=== PATIENT | female | born 1985 | race Caucasian/White ===

== ENCOUNTER → 2016-03-27 | Outpatient (CLI) | payer BC, OTHER ==
[2016-03-27 17:08] LABS: Basophils % (A) 1 %; CH 30.1; CHCM 33.3; Eosinophils # (A) 0.2 k/uL (0-0.7); Eosinophils % (A) 3 %; HCT 44.4 % (34.0-46.0); HDW 2.26; HGB 14.7 gm/dL (11.4-16.0); Luc # (Auto) 0.12; Luc % (Auto) 2; Lymphocytes # (A) 1.9 k/uL (1.0-4.8); Lymphocytes % (A) 26 %; MCH 30.1 pg (25.0-35.0); MCHC 33.1 g/dL (31.0-37.0); MCV 90.8 fL (80.0-100.0); Mean Platelet Volume 7.6; Monocytes # (A) 0.4 k/uL (0-1.0); Monocytes % (A) 5 %; Neutrophils # (A) 4.8 k/uL (1.3-7.7); Neutrophils % (A) 64 %; RBC 4.89 m/uL (3.80-5.40); RDW 12.1 % (11.5-15.5); WBC 7.5 k/uL (3.8-10.6); WBC (Perox) 7.31
== END | disposition home or self-care (01) ==
LOC: LABPAT 16:43
PROVIDERS: ATTEND Obstetrics & Gynecology
DX: Z01.812 Encounter for preprocedural laboratory examination (principal)
CPT/HCPCS: 85025

== ENCOUNTER 2016-04-03 06:39 | Day surgery (SDC) | payer BC, OTHER ==
[2016-03-29 08:45] VITALS: BMI 30.9
--- NOTE | 2016-04-02 16:51 | P.HPOB ---
History of Present Illness H&P Date: 04/02/16 Chief Complaint: Menorrhagia with irregular cycle, family planning This is a 30-year-old female para 4 who presents for laparoscopic bilateral tubal ligation via fulguration and dilation and curettage with hysteroscopy and NovaSure endometrial ablation secondary to menorrhagia with irregular cycle. She complains of her menses being very heavy and irregular and extremely long for the last 5 months. She also complains of abdominal cramping with her periods. She also complains of intermenstrual spotting. Currently her menses are occurring every 21-30 days and lasting anywhere from 3- 8 days with some spotting in between. She also is 100% sure she would like permanent sterilization. She has consented to laparoscopic tubal ligation. She had rashes with both Depo-Provera and control pills. Obstetrical history: G5 6 P4. History of 4 vaginal deliveries and 2 miscarriages. Gynecologic history: She does have a history of Trichomonas treated many years ago. Social history: She is . She works part-time at [employer]. Review of Systems Ears, nose, mouth and throat: Reports headache, Denies sore throat Cardiovascular: Denies chest pain, Denies shortness of breath Respiratory: Denies cough Gastrointestinal: Denies abdominal pain, Denies diarrhea, Denies nausea, Denies vomiting Genitourinary: Reports dysmenorrhea, Reports menorrhagia, Reports pelvic pain, Denies Menstruation: Reports menses 8 or > days, Reports menses variable, Reports period heavy, Reports period spotting Musculoskeletal: Denies myalgias Integumentary: Denies pruritus, Denies rash Neurological: Reports headaches, Denies numbness, Denies weakness Past Medical History Additional Past Medical History / Comment(s): MIGRAINES History of Any Multi-Drug Resistant Organisms: None Reported Additional Past Surgical History / Comment(s): D&C Past Anesthesia/Blood Transfusion Reactions: Previous Problems w/ Anesthesia Additional Past Anesthesia/Blood Transfusion Reaction / Comment(s): Had a migrane for 2 weeks after D&C Past Psychological History: Anxiety, Depression, Panic Disorder Additional Psychological History / Comment(s): does not take medication for this Smoking Status: Current every day smoker Past Alcohol Use History: None Reported Past Drug Use History: None Reported - Past Family History Mother Additional Family Medical History / Comment(s): Heart disease Medications and Allergies Home Medications Medication Instructions Recorded Confirmed Type No Known Home Medications [No 03/29/16 03/29/16 History Known Home Medications] Allergies Allergy/AdvReac Type Severity Reaction Status Date / Time No Known Allergies Allergy Verified 03/29/16 08:28 Exam Osteopathic Statement: *. No significant issues noted on an osteopathic structural exam other than those noted in the History and Physical/Consult. HEENT: Within normal limits Heart: Regular rate and rhythm Lungs: Clear to auscultation bilaterally Abdomen: Soft, nontender Pelvic exam: Uterus is anteverted, nontender, with no adnexal masses or tenderness palpated. Extremities: Negative Homans Assessment and Plan (1) Menorrhagia with irregular cycle Status: Acute (2) Family planning Status: Acute Plan: Proceed with laparoscopic bilateral tubal ligation via fulguration and dilation and curettage with hysteroscopy and NovaSure endometrial ablation. I have discussed the risks, benefits, and alternative therapies for the above- mentioned procedure and for both sedation/anesthesia as well as necessary blood products administration, if indicated, as they pertain to this patient. The patient has indicated her understanding and acceptance of the risks and procedures discussed.
[~2016-04-03 06:39] MED LIST: DEXAMETHASONE SOD PHOSPHATE 10 MG/ML 1 ML VIAL IV ONE; HYDROmorphone 1 MG/ML 1 ML SYRINGE IVP PRN; LACTATED RINGERS 1,000 ML IV SCH; MIDAZOLAM 2 MG/2 ML VIAL IV PRN; ONDANSETRON 4 MG/2 ML VIAL IVP ONE; Pre Op ABX Message 1 EACH MISC MISCELLANE ONE; SCOPOLAMINE 1.5MG/72HR PATCH TRANSDERM ONE
[2016-04-03 06:57] VITALS: RESP 16
[2016-04-03] MEDS ORDERED: LIDOCAINE 1% 20 ML VIAL (10MG/ML) FOR IV START INTRADERMA ONE (07:05)
[2016-04-03] MEDS ORDERED: KETOROLAC 30 MG/ML 1 ML VIAL ONE (07:31)
[2016-04-03] MEDS ORDERED: SUCCINYLCHOLINE CHLORIDE 100 MG/5 ML SYR IV ONE (07:31)
[2016-04-03] MEDS ORDERED: ROCURONIUM BROMIDE 10 MG/ML 10 ML VIAL IV ONE (07:31)
[2016-04-03] MEDS ORDERED: LIDOCAINE 1% INJ 10MG/ML (20 ML MDV) ONE (07:31)
[2016-04-03] MEDS ORDERED: fentaNYL (PF) 50 MCG/ML 2 ML AMP ONE (07:31)
[2016-04-03] MEDS ORDERED: GLYCOPYRROLATE 0.2 MG/ML 2 ML VIAL ONE (07:31)
[2016-04-03] MEDS ORDERED: PROPOFOL 10 MG/ML 20 ML VIAL IV ONE (07:31)
[2016-04-03] MEDS ORDERED: HYDROmorphone (PF) 1 MG/ML ONE (07:31)
[2016-04-03] MEDS ORDERED: MIDAZOLAM 2 MG/2 ML VIAL ONE (07:31)
[2016-04-03] MEDS ORDERED: NEOSTIGMINE 1 MG/ML 10 ML VIAL ONE (07:31)
[2016-04-03] MEDS ORDERED: BUPIVACAINE (PF) 0.25% 30 ML VIAL SQ ONE ×3 (07:33→08:17)
--- NOTE | 2016-04-03 08:29 | P.OP ---
Date of Procedure: 04/03/16 Preoperative Diagnosis: Menorrhagia with irregular cycle, family planning Postoperative Diagnosis: Same Procedure(s) Performed: Hysteroscopy with dilation and curettage and NovaSure endometrial ablation Laparoscopic bilateral tubal ligation via fulguration Anesthesia: SHAMEKA Surgeon: Roxana Alvarez Estimated Blood Loss (ml): 10 Pathology: other (Endometrial curettings) Condition: stable Disposition: same day Indications for Procedure: is a 30-year-old female para 4 who presents for laparoscopic bilateral tubal ligation via fulguration and dilation and curettage with hysteroscopy and NovaSure endometrial ablation secondary to menorrhagia with irregular cycle. She complains of her menses being very heavy and irregular and extremely long for the last 5 months. She also complains of abdominal cramping with her periods. She also complains of intermenstrual spotting. Currently her menses are occurring every 21-30 days and lasting anywhere from 3- 8 days with some spotting in between. She also is 100% sure she would like permanent sterilization. She has consented to laparoscopic tubal ligation. She had rashes with both Depo-Provera and control pills. Operative Findings: Uterus is sounded to 6 cm, cervix is sounded to 3 cm. Uterus is found to be mid position with no adnexal masses palpated. Upon hysteroscopy a fairly uniform contour was noted with both tubal ostia visualized. A small amount of breakdown of tissue is noted. A minimal amount of endometrial tissue was obtained. Upon laparoscopy, both tubes and ovaries were visualized and appeared normal. Uterus appeared normal in contour. Description of Procedure: The patient is taken to the operating room. She is placed in the dorsal lithotomy position after general anesthesia was given. She is prepped and draped in the normal sterile fashion. Bladder is drained with a catheter and then removed. Pelvic exam is performed under anesthesia. Uterus is found to be mid position with no adnexal masses. She is placed in slight Trendelenburg position. A right angle retractor is used to visualize the cervix. The anterior lip of the cervix is grasped with a single-tooth tenaculum. Cervix is sounded to 3 cm. Uterus is sounded to 8 cm. Cervix is gently dilated with Carlin dilators until a hysteroscope could be passed. Hysteroscopy is performed using normal saline. The above noted findings are noted. Next a polyp forceps is introduced. A minimal amount of tissue was obtained. Next medium-sized size sharp curette was placed. A minimal amount of endometrial curettings were obtained. Next NovaSure array was inserted into the endometrial cavity. Length was set at 5 cm and width was determined to be 4.1 cm. Next cavity assessment was completed and passed on the first try. Next NovaSure array was fired at 113 W for 39 seconds. Next the array was removed, inspected and then discarded. Next the hysteroscope was reinserted. Uniform charring was noted. Pictures were taken. Hysteroscope was removed. Next a kroner uterine manipulator is inserted into the endometrial cavity and balloon is inflated. Single-tooth tenaculum was removed from the anterior lip of the cervix. Minimal bleeding was noted. Next attention is turned to the abdomen after gloves were changed. The infraumbilical fold was grasped in transverse fashion with 2 Allis clamps. A small transverse incision was made with a scalpel. A hemostat was used to carry the incision down to the underlying layer of fascia. A towel clip was placed above the umbilicus for retraction. A 10 mm disposable bladeless trocar was then inserted into the peritoneal cavity under direct visualization. Once inside, pneumoperitoneum was achieved with CO2 gas. The insert was removed and the camera was placed. Intraperitoneal placement was confirmed. No bleeding was noted. Next the patient was placed in Trendelenburg position. A small stab incision was made suprapubically and a 5 mm disposable bladeless trocar was inserted into the peritoneal cavity under direct visualization. Once inside pelvic contents were inspected. Next a bipolar Kleppinger instrument was placed through the inferior trocar and the midportion of each tube was brought away from other structures and completely fulgurated on approximate 2-3 cm segment of each tube. There was noted to be some bleeding noted in the right adnexal region. It appeared to be coming from the insertion of the tube into the uterus. The bipolar Kleppinger instrument was used to grasp this area and cauterized. Once this was completed, good hemostasis was noted. A suction jack frame tender was placed and suction irrigation was carried out with good hemostasis noted. A picture was taken. Pneumoperitoneum was released after the inferior trocar was removed under direct visualization. The upper trocar was then removed. The fascial incision was closed with 0 Vicryl suture in interrupted [id number] stitch. The skin incisions were then closed with 4- 0 Vicryl suture in a subcuticular fashion. Incision sites are injected with quarter percent Marcaine. Approximately 6-7 mL are used. Next the kroner uterine manipulator was removed. Minimal bleeding was noted. All sponge and needle counts are correct. The patient is then taken to recovery room in stable condition.
[2016-04-03 08:48] VITALS: TEMP 96.4
[2016-04-03] MEDS ORDERED: Acetaminophen-Codeine 300-30mg TAB PO ONE (09:53)
[2016-04-03 10:01] VITALS: BP 95/61; PULSE 84
== END 2016-04-03 10:20 | disposition home or self-care (01) ==
LOC: OR 06:39
PROVIDERS: ATTEND Obstetrics & Gynecology
DX: Z30.2 Encounter for sterilization (principal); N92.0 Excessive and frequent menstruation with regular cycle; N85.8 Other specified noninflammatory disorders of uterus; N92.6 Irregular menstruation, unspecified; F17.200 Nicotine dependence, unspecified, uncomplicated
CPT/HCPCS: 58670; 58563; 81025; 88305; J2250; J1100; J2710; J2405; J2001; J3010; J1885; J1170; J0330; J2704

== ENCOUNTER → 2018-07-23 | Outpatient (CLI) | payer BC, OTHER ==
[2018-07-23 18:09] LABS: T4, Free (Free Thyroxine) 1.2 ng/dL (0.80-1.80)
== END | disposition home or self-care (01) ==
LOC: LABWHC1 10:34
PROVIDERS: ATTEND Internal Medicine
DX: R00.2 Palpitations (principal)
CPT/HCPCS: 36415; 84439; 84443; 84481; 86800; 93005

== ENCOUNTER → 2018-07-31 | Outpatient (CLI) | payer BC, OTHER ==
--- NOTE | 2018-08-06 13:05 | HM ---
HOLTER MONITOR REPORT A 48-HOUR MONITOR DATE OF SERVICE: July 31, 2018 The baseline rhythm appeared to be a sinus mechanism with a minimum heart rate of 57 beats per minute, max heart rate 164 beats per minute, average heart rate pulse 91 beats per minute. Ventricular ectopy events presented in less than 1% of the total beats counted. Supraventricular ectopic events presented in less than 1% of total beats counted as well. No evidence of sinus pause or sinus arrest. The patient reported no symptoms. CONCLUSION: 1. Sinus rhythm as a baseline mechanism. 2. Rare ventricular ectopic events. 3. Rare supraventricular ectopic events. 4. There is no evidence of sinus pause or sinus arrest. 5. The patient reported symptoms of headache and shortness of breath and the symptoms were associated with normal sinus mechanism. MMODL / IJN: [id number] /
== END ==
LOC: RADECHMAIN 11:34
PROVIDERS: ATTEND Internal Medicine
DX: R00.2 Palpitations (principal)
CPT/HCPCS: 93225; 93226

== ENCOUNTER → 2022-06-26 | Outpatient (CLI) | payer BC, OTHER ==
[2022-06-26 16:01] LABS: African American GFR (CKD) 129.2 (60.0-200.0); Albumin 4.4 g/dL (3.8-4.9); Albumin/Globulin Ratio 1.76 (1.60-3.17); Anion Gap 11.9 mmol/L (10.00-18.00); BUN/Creat Ratio 15.43 Ratio (12.00-20.00); Blood Urea Nitrogen 10.8 mg/dL (9.0-27.0); Calcium 9.4 mg/dL (8.7-10.3); Carbon Dioxide 26.1 mmol/L (20.0-27.5); Globulin 2.5 g/dL (1.6-3.3); Non-African American GFR(CKD) 111.5 (60.0-200.0); Potassium 4.5 mmol/L (3.5-5.5); Total Bilirubin 0.3 mg/dL (0.30-1.20); Total Protein 6.9 g/dL (6.2-8.2)
== END | disposition home or self-care (01) ==
LOC: LABWHC1 09:16
PROVIDERS: ATTEND Internal Medicine Interventional Cardiology
DX: R00.2 Palpitations (principal)
CPT/HCPCS: 36415; 80053; 84443

== ENCOUNTER 2022-07-17 08:55 | Day surgery (SDC) | payer BC, OTHER ==
[2022-07-13 11:48] VITALS: BMI 34.3
[~2022-07-17 08:55] MED LIST changes: -DEXAMETHASONE SOD PHOSPHATE 10 MG/ML 1 ML VIAL IV ONE; -HYDROmorphone 1 MG/ML 1 ML SYRINGE IVP PRN; -LACTATED RINGERS 1,000 ML IV SCH; -MIDAZOLAM 2 MG/2 ML VIAL IV PRN; -ONDANSETRON 4 MG/2 ML VIAL IVP ONE; -Pre Op ABX Message 1 EACH MISC MISCELLANE ONE; -SCOPOLAMINE 1.5MG/72HR PATCH TRANSDERM ONE; +SODIUM CHLORIDE 0.9% 1,000 ML IV SCH
[2022-07-17 09:18] VITALS: BP 108/71; PULSE 90; RESP 18; TEMP 98
[2022-07-17] MEDS ORDERED: SODIUM CHLORIDE 0.9% 500 ML 500 ML IV ONE (12:25)
--- NOTE | 2022-07-24 18:49 | P.EPPROC ---
- EP Procedure Note Electrophysiology Procedure Note: Diagnosis Recurrent presyncope and syncope Baseline to her EKG shows sinus rhythm normal DE narrow QRS normal ST segments normal QT interval Tilt table test per protocol Baseline blood pressure 110/57 mmHg Baseline heart rate 60 beats a minute Patient was tilted upright at an angle of 70 per protocol This is a mild increase in the heart rate into the 90s Thereafter heart rates remained in the mid 90s Systolic blood pressures were also in the mid 90s She complained of being shaky nauseous tired and feeling sick No evidence for neurocardiogenic phenomenon When she was laid supine her heart rate improved to 59 beats a minute Impression Postural tachycardia syndrome #20
== END 2022-07-17 12:50 | disposition home or self-care (01) ==
LOC: CATHEP 08:55
PROVIDERS: ATTEND Internal Medicine Clinical Cardiac Electrophysiology
DX: I25.10 Atherosclerotic heart disease of native coronary artery without angina pectoris (principal); F17.210 Nicotine dependence, cigarettes, uncomplicated; Z82.49 Family history of ischemic heart disease and other diseases of the circulatory system; Z79.899 Other long term (current) drug therapy
CPT/HCPCS: 81025; 93005; 93660

== ENCOUNTER → 2022-10-19 | Outpatient (CLI) | payer BC, OTHER ==
--- NOTE | 2022-10-19 14:25 | MM ---
Reason for Exam: Clinical finding. Risk Values: Kassandra 5 year model risk: 0.3%. NCI Lifetime model risk: 6.8%. Staff Notes: BASELINE STUDY. Tissue Density: There are scattered fibroglandular densities. Findings: Analyzed By CAD. No new suspicious masses, calcifications or distortions. No finding to correlate with palpable abnormality. Overall Assessment: Incomplete: need additional imaging evaluation, BI-RAD 0 Management: Diagnostic Breast Ultrasound of the right breast. Results were given to the patient verbally at the time of exam. Patient should continue monthly self-breast exams. A clinical breast exam by your physician is recommended on an annual basis. This exam should not preclude additional follow-up of suspicious palpable abnormalities. Note on Kassandra scores and lifetime risk: 1. A Kassandra score greater than 3% is considered moderate risk. If this is the case, consider specialist referral to assess eligibility for a risk reducing agent. 2. If overall lifetime risk for the development of breast cancer is 20% or higher, the patient may qualify for future screening with alternating mammogram and breast MRI. Electronically signed and approved by: Derick Fabian DO
--- NOTE | 2022-10-19 14:54 | USB ---
Reason for Exam: Clinical finding. Risk Values: Kassandra 5 year model risk: 0.3%. NCI Lifetime model risk: 6.8%. Findings: The area of palpable concern of the right breast, the axilla of the right breast and the retroareolar of the right breast were scanned. Imaged: Ultrasound imaging of: Area of concern, retroareolar region and axilla. Prominent ducts, no suspicious mass. Nothing to correlate with palpable abnormality. No evidence for organizing fluid collection or mass. Overall Assessment: Negative, BI-RAD 1 Management: Screening Mammogram of both breasts at age 40. A clinical breast exam by your physician is recommended on an annual basis and results should be correlated with mammographic findings. This exam should not preclude additional follow-up of suspicious palpable abnormalities. Results were given to the patient verbally at the time of exam. Electronically signed and approved by: Derick Fabian DO
== END | disposition home or self-care (01) ==
LOC: RADMAMWWP 13:46
PROVIDERS: ATTEND Internal Medicine
DX: N63.10 Unspecified lump in the right breast, unspecified quadrant (principal)
CPT/HCPCS: 77062; 77066

== ENCOUNTER → 2023-09-12 | Outpatient (CLI) | payer BC ==
--- NOTE | 2023-09-12 09:09 | US ---
EXAMINATION TYPE: US thyroid st tissue head/neck DATE OF EXAM: 09/12/2023 COMPARISON: NONE CLINICAL INDICATION: Female, 37 years old with history of E03.9 HYPERTHYROIDISM; Hx POTS Symptoms wor sening, patient denies any new signs or symptoms GLAND SIZE: Right Lobe: 7.0 x 1.9 x 2.4 cm Overall Parenchyma: heterogeneous Left Lobe: 6.0 x 1.7 x 2.1 cm Overall Parenchyma: heterogeneous Isthmus Thickness: 0.5 cm NODULES RIGHT: # of nodules measured on right: 0 LEFT: # of nodules measured on left: 0 ISTHMUS: # of nodules measured in the isthmus: 0 Bilateral neck scanned, lymph nodes noted bilateral lateral necks IMPRESSION: 1. No thyroid nodules visualized. 2. Heterogenous thyroid gland correlate with serum markers for thyroiditis.
== END | disposition home or self-care (01) ==
LOC: RADUSWWP 07:25
PROVIDERS: ATTEND Family Medicine
DX: E03.9 Hypothyroidism, unspecified (principal)
CPT/HCPCS: 76536

== ENCOUNTER 2023-11-26 08:06 | Emergency (ER) | payer BC ==
[2023-11-26 08:11] VITALS: RESP 18
--- NOTE | 2023-11-26 08:35 | ED ---
URI HPI - General Chief Complaint: Upper Respiratory Infection Stated Complaint: SOB Time Seen by Provider: 11/26/23 08:13 Source: patient, family, RN notes reviewed, old records reviewed Mode of arrival: ambulatory Limitations: no limitations - History of Present Illness Initial Comments: This is a 38-year-old female for reevaluation today. Patient has had multiple evaluations in person telehealth. Started on some antibiotic for a sore throat started on steroids for cough and congestion. Patient has no improvement with symptoms greater than a few weeks now. No known travel history or sick contacts no fevers MD Complaint: cough, sore throat -: week(s) Severity scale (1-10): 4 Quality: sharp Improves With: nothing Worsens With: nothing Associated Symptoms: chills, myalgias, cough, shortness of breath - Related Data Previous Rx's Medication Instructions Recorded Benzonatate [Tessalon Perles] 100 mg PO TID PRN #15 capsule 11/26/23 Erythromycin [Matias-Tab] 500 mg PO BID #20 tablet 11/26/23 Allergies Allergy/AdvReac Type Severity Reaction Status Date / Time No Known Allergies Allergy Verified 11/26/23 08:11 Review of Systems ROS Statement: Those systems with pertinent positive or pertinent negative responses have been documented in the HPI. ROS Other: All systems not noted in ROS Statement are negative. Past Medical History Past Medical History: Skin Disorder, Thyroid Disorder Additional Past Medical History / Comment(s): Migraines. Heart rate fast and chest pain. Varicose veins. Stomach issues. Eczema. History of Any Multi-Drug Resistant Organisms: None Reported Past Surgical History: Tubal Ligation Additional Past Surgical History / Comment(s): Cervical Ablation. Past Anesthesia/Blood Transfusion Reactions: No Reported Reaction Past Psychological History: No Psychological Hx Reported Smoking Status: Vaper Past Alcohol Use History: None Reported Past Drug Use History: None Reported - Past Family History Mother Family Medical History: No Reported History General Exam Limitations: no limitations General appearance: alert, in no apparent distress Head exam: Present: atraumatic, normocephalic, normal inspection Eye exam: Present: normal appearance, PERRL, EOMI. Absent: scleral icterus, conjunctival injection, periorbital swelling ENT exam: Present: normal exam, mucous membranes moist Neck exam: Present: normal inspection. Absent: tenderness, meningismus, lymphadenopathy Respiratory exam: Present: normal lung sounds bilaterally. Absent: respiratory distress, wheezes, rales, rhonchi, stridor Cardiovascular Exam: Present: regular rate, normal rhythm, normal heart sounds. Absent: systolic murmur, diastolic murmur, rubs, gallop, clicks GI/Abdominal exam: Present: soft, normal bowel sounds. Absent: distended, tenderness, guarding, rebound, rigid Extremities exam: Present: normal inspection, full ROM, normal capillary refill. Absent: tenderness, pedal edema, joint swelling, calf tenderness Back exam: Present: normal inspection Neurological exam: Present: alert, oriented X3, CN II-XII intact Psychiatric exam: Present: normal affect, normal mood Skin exam: Present: warm, dry, intact, normal color. Absent: rash Course Vital Signs 11/26/23 11/26/23 11/26/23 08:09 08:17 09:32 Temperature 97.7 F Pulse Rate 95 84 Respiratory 18 18 Rate Blood Pressure 127/83 O2 Sat by Pulse 98 Oximetry 11/26/23 11/26/23 09:40 11:04 Temperature 98.3 F Pulse Rate 82 64 Respiratory 18 Rate Blood Pressure 114/50 O2 Sat by Pulse 97 Oximetry - Reevaluation(s) Reevaluation #1: 11/26/23 10:12 Medical records reviewed Reevaluation #2: 11/26/23 10:12 Patient symptoms improved Reevaluation #3: 11/26/23 10:12 Patient informed of results and questions answered Reevaluation #4: Was pt. sent in by a medical professional or institution (, PA, SALOONKEEPER, urgent care, hospital, or long-term...) When possible be specific @ -no Did you speak to anyone other than the patient for history (EMS, parent, family, police, friend...)? What history was obtained from this source @ -no Did you review nursing and triage notes (agree or disagree)? Why? @ -agree Are old charts reviewed (outside hosp., previous admission, EMS record, old EKG, old radiological studies, urgent care reports/EKG's, long-term records)? Report findings @ -yes Differential Diagnosis (chest pain, altered mental status, abdominal pain women, abdominal pain men, vaginal bleeding, weakness, fever, dyspnea, syncope, headache, dizziness, GI bleed, back pain, seizure, CVA, palpatations, mental health, musculoskeletal)? @ -prior EKG interpreted by me (3pts min.). @ -no X-rays interpreted by me (1pt min.). @ -yes negative for acute disease CT interpreted by me (1pt min.). @ -no U/S interpreted by me (1pt. min.). @ -no What testing was considered but not performed or refused? (CT, X-rays, U/S, labs)? Why? @ -none What meds were considered but not given or refused? Why? @ -none Did you discuss the management of the patient with other professionals (professionals i.e. Dr., PA, SALOONKEEPER, lab, RT, psych nurse, addiction social worker, cyber forensics analyst, teacher, food safety officer, egg caser)? Give summary @ -no Was smoking cessation discussed for >3mins.? @ -no Was critical care preformed (if so, how long)? @ -no Were there social determinants of health that impacted care today? How? (Homelessness, low income, unemployed, alcoholism, drug addiction, transportation, low edu. Level, literacy, decrease access to med. care, nursing home, rehab)? @ -none Was there de-escalation of care discussed even if they declined (Discuss DNR or withdrawal of care, Hospice)? DNR status @ -no What co-morbidities impacted this encounter? (DM, HTN, Smoking, COPD, CAD, Cancer, CVA, ARF, Chemo, Hep., AIDS, mental health diagnosis, sleep apnea, morbid obesity)? @ -none Was patient admitted / discharged? Hospital course, mention meds given and route, prescriptions, significant lab abnormalities, going to OR and other pertinent info. @ - 38 female to ER for evaluation of persistent cough and congestion with posttussive emesis. Signs and symptoms of pertussis will treat Discharge Undiagnosed new problem with uncertain prognosis? @ -no Drug Therapy requiring intensive monitoring for toxicity (Heparin, Nitro, Insulin, Cardizem)? @ -no Were any procedures done? @ -no Diagnosis/symptom? @ -Cough congestion URI Acute, or Chronic, or Acute on Chronic? @ -Acute Uncomplicated (without systemic symptoms) or Complicated (systemic symptoms)? @ -Complicated Side effects of treatment? @ -no Exacerbation, Progression, or Severe Exacerbation? @ -exacerbation Poses a threat to life or bodily function? How? (Chest pain, [place], [place], pneumonia, PE, COPD, DKA, ARF, appy, cholecystitis, CVA, Diverticulitis, Homicidal, Suicidal, threat to staff... and all critical care pts) @ -no Reevaluation #5: Differential Dyspnea: Coronary syndrome, arrhythmia, tamponade, asthma, COPD, pulmonary embolism, pneumonia, pneumothorax, pulmonary effusion, anaphylaxis, diabetic ketoacidosis, flailed chest, pulmonary contusion, diaphragmatic rupture, anemia, neuromuscular, this is not meant to be an all-inclusive list. Medical Decision Making - Medical Decision Making 38 female to ER for evaluation of persistent cough and congestion with posttussive emesis. Signs and symptoms of pertussis will treat - Lab Data Lab Results 11/26/23 11/26/23 Range/Units 08:40 08:40 Influenza Type A (PCR) Not Detected (Not Detectd) Influenza Type B (PCR) Not Detected (Not Detectd) RSV (PCR) Not Detected (Not Detectd) SARS-CoV-2 (PCR) Not Detected (Not Detectd) Group A Strep (PCR) NOT DETECTED (Not Detectd) - Radiology Data Radiology results: report reviewed (Chest x-ray is negative for acute disease), image reviewed Disposition Clinical Impression: Cough, Acute upper respiratory infection Disposition: HOME SELF-CARE Condition: Good Instructions (If sedation given, give patient instructions): Pertussis (ED) Prescriptions: Erythromycin [Matias-Tab] 500 mg PO BID #20 tablet Benzonatate [Tessalon Perles] 100 mg PO TID PRN #15 capsule PRN Reason: Cough Is patient prescribed a controlled substance at d/c from ED?: No Referrals: Brendan Penn MD [Primary Care Provider] - 1-2 days Time of Disposition: 10:10
[2023-11-26] MEDS: BENZONATATE 100 MG CAP PO STA (08:43)
--- NOTE | 2023-11-26 08:58 | XR ---
EXAMINATION TYPE: XR chest 2V DATE OF EXAM: 11/26/2023 COMPARISON: 04/23/2015 TECHNIQUE: PA and lateral views submitted. HISTORY: Cough FINDINGS: The lungs are clear and there is no pneumothorax, pleural effusion, or focal pneumonia. Heart size normal and no overt failure. Osseous structures intact. IMPRESSION: 1. No acute process. [facility], , 11/26/2023 8:56 AM
[2023-11-26] MEDS: IPRATROPIUM-ALBUTEROL 3 ML NEB INHALATION STA (09:32)
[2023-11-26] MEDS: ERYTHROMYCIN 250 MG TAB PO STA (11:02)
[2023-11-26 11:05] VITALS: BP 114/50; PULSE 64; TEMP 98.3
== END 2023-11-26 11:05 | disposition home or self-care (01) ==
LOC: EC 08:06
CPT/HCPCS: 71046; 87636; 87651; 94640